=== PATIENT | male | born 1955 | race Caucasian/White ===

== ENCOUNTER 2017-03-16 13:35 | Emergency (ER) | payer MEDICAID ==
--- NOTE | 2017-03-16 14:19 | XRAY Preliminary Report ---
Exam: XR CHEST 2 VIEW PA/LAT IMPRESSION: No acute cardiopulmonary abnormality. No evidence of pneumonia. [facility] SITE ID: [id number]
--- NOTE | 2017-03-16 14:21 | XRAY Report ---
EXAM: CHEST RADIOGRAPHY EXAM DATE: 03/16/2017 02:10 PM. CLINICAL HISTORY: Cough. COMPARISON: None. TECHNIQUE: 2 views. FINDINGS: Lungs/Pleura: No focal opacities evident. No pleural effusion. No pneumothorax. Normal volumes. Mediastinum: Heart and mediastinal contours are unremarkable. Other: Degenerative changes within the spine. Mild anterior compression deformities of several thorac ic vertebral bodies. Dysplastic right fourth rib, likely congenital. IMPRESSION: No acute cardiopulmonary abnormality. No evidence of pneumonia. [facility] Referring Provider Line: [phone] SITE ID: [id number]
[2017-03-16 14:50] VITALS: BP 132/58
[2017-03-16] MEDS ORDERED: IPRATROPIUM/ALBUTEROL 3 ML NEB INH STA (14:50)
[2017-03-16] MEDS ORDERED: DEXAMETHASONE 10 MG/ML VIAL PO STA (14:50)
--- NOTE | 2017-03-16 14:55 | ED Physician Documentation ---
PD HPI URI - Stated complaint Stated Complaint: CHEST CONGESTION - Chief complaint Chief Complaint: Resp - History obtained from History obtained from: Patient - History of Present Illness Timing - onset: How many weeks ago (2) Timing duration: Weeks (2) Timing details: Gradual onset Pain level max: 0 Pain level now: 0 Associated symptoms: Nasal congestion, Rhinorrhea, Productive cough (yellow/ green). No: Fever, Chills, Sweats, Ear pain, Sore throat, Hemoptysis, Chest pain, Dyspnea, NVD Contributing factors: Sick contact. No: Travel, Immunocompromised, Unimmunized , COPD / asthma Improves by: Rest Worsened by: Activity, Breathing Similar symptoms before: Has not had sx before Recently seen: Not recently seen Review of Systems Constitutional: denies: Fever, Chills GI: denies: Abdominal Pain, Vomiting Skin: denies: Rash Musculoskeletal: denies: Neck pain, Back pain PD PAST MEDICAL HISTORY - Past Medical History Past Medical History: No Cardiovascular: None Respiratory: None Endocrine/Autoimmune: None GI: None : None HEENT: None Psych: None Musculoskeletal: None Derm: None - Past Surgical History Past Surgical History: No - Present Medications Home Medications: Ambulatory Orders Medication Instructions Recorded Confirmed Albuterol Sulf [Ventolin Hfa 2 puffs INH Q4HR PRN #1 inhaler 03/16/17 Inhaler] Benzonatate [Tessalon Perle] 100 - 200 mg PO TID PRN #30 capsule 03/16/17 Cetirizine HCl/Pseudoephedrine 1 each PO BID PRN #30 tab.er.12h 03/16/17 [Zyrtec-D Tablet] Prednisone 40 mg PO DAILY #10 tablet 03/16/17 - Allergies Allergies/Adverse Reactions: Allergies Allergy/AdvReac Type Severity Reaction Status Date / Time No Known Drug Allergies Allergy Verified 03/16/17 13:53 - Social History Does the pt smoke?: No Smoking Status: Never smoker Does the pt drink ETOH?: Yes ETOH Use: Wine, Beer Substance Use and Type: Marijuana PD ED PE NORMAL - Vitals Vital signs reviewed: Yes - General General: Alert and oriented X 3, No acute distress - HEENT HEENT: PERRL, Ears normal, Moist mucous membranes, Pharynx benign - Neck Neck: Supple, no meningeal sign, No adenopathy - Cardiac Cardiac: RRR, Strong equal pulses - Respiratory Respiratory: No respiratory distress, Other (mild wheezing B) - Abdomen Abdomen: Soft, Non tender, Non distended - Derm Derm: Warm and dry, No rash - Neuro Neuro: Alert and oriented X 3 - Psych Psych: Normal mood, Normal affect Results - Vitals Vitals: Vital Signs - 24 hr 03/16/17 03/16/17 03/16/17 13:47 14:49 14:59 Temperature 36.8 C 36.4 C L Heart Rate 55 L 55 L 53 L Respiratory 16 18 14 Rate Blood Pressure 155/57 H 132/58 H O2 Saturation 99 98 Oxygen O2 Source Room air - Rads (name of study) cxr Radiology: Prelim report reviewed, EMP read contemporaneously, See rad report ( NAD) PD MEDICAL DECISION MAKING - ED course Complexity details: reviewed results, re-evaluated patient, considered differential, d/w patient ED course: Patient is a 62-year-old male who presents to the emergency department with what appears to be a viral upper respiratory illness with wheezing. No pneumonia on chest x-ray. He is well-appearing, nontoxic. Afebrile. No hypoxia. Feels better after nebulizer treatment. Will place on an inhaler, steroids and decongestants for home. We will have him follow-up with his doctor. Patient counseled regarding signs and symptoms for which I believe and urgent re-evaluation would be necessary. Patient with good understanding of and agreement to plan and is comfortable going home at this time This document was made in part using voice recognition software. While efforts are made to proofread this document, sound alike and grammatical errors may occur. Departure - Departure Disposition: 01 Home, Self Care Clinical Impression: Upper respiratory tract infection Qualifiers: URI type: unspecified viral URI Qualified Code(s): J06.9 - Acute upper respiratory infection, unspecified Condition: Good Instructions: ED URI Viral W Wheezing Follow-Up: your,doctor in 2 weeks if not better [Other] Prescriptions: Albuterol Sulf [Ventolin Hfa Inhaler] 2 puffs INH Q4HR PRN #1 inhaler PRN Reason: Wheezing Benzonatate [Tessalon Perle] 100 - 200 mg PO TID PRN #30 capsule PRN Reason: Cough Cetirizine HCl/Pseudoephedrine [Zyrtec-D Tablet] 1 each PO BID PRN #30 tab.er.12h PRN Reason: Nasal Congestion Prednisone 40 mg PO DAILY #10 tablet Comments: Return if you worsen. This should improve over the next week or 2. This is lasting an average of 3 weeks for people. Your x-rays normal today. Discharge Date/Time: 03/16/17 15:30
[2017-03-16] MEDS ORDERED: DEXAMETHASONE 10 MG/ML VIAL ONE (14:58)
[2017-03-16] MEDS ORDERED: IPRATROPIUM/ALBUTEROL 3 ML NEB INH ONE (15:01)
== END 2017-03-16 15:30 | disposition home or self-care (01) ==
LOC: ED 13:35
DX: J06.9 Acute upper respiratory infection, unspecified (principal)
CPT/HCPCS: 71020; 94640; 99283; J7620

== ENCOUNTER 2018-09-08 10:22 | Outpatient (CLI) | payer MEDICAID ==
[2018-09-08 18:51] LABS: ALBUMIN 4.3 g/dL (3.2-5.5); ALBUMIN/GLOBULIN RATIO 1.7 (1.0-2.2); ALKALINE PHOSPHATASE 43 IU/L (42-121); ALT ALANINE AMINOTRANSFERASE 38 IU/L (10-60); AST ASPARTATE AMINOTRANSFERASE 42 IU/L (10-42); BILIRUBIN,TOTAL 0.9 mg/dL (0.2-1.0); BUN - BLOOD UREA NITROGEN 18 mg/dL (6-20); CALCIUM 9.5 mg/dL (8.5-10.3); CARBON DIOXIDE - CO2 24 mmol/L (21-32); CHLORIDE 103 mmol/L (101-111); CHOL/HDL RATIO 1.5 (<5.0); CHOLESTEROL 188 mg/dL; CREATININE 0.9 mg/dL (0.6-1.2); GFR - MDRD 85 (>89); GLUCOSE 91 mg/dL (70-100); HDL CHOLESTEROL 122 mg/dL; SODIUM 140 mmol/L (135-145); TOTAL PROTEIN 6.8 g/dL (6.7-8.2)
[2018-09-08 18:57] LABS: HB2 TOTAL 15.5 g/dL; HEMOGLOBIN A1C 0.44 g/dL; HEMOGLOBIN A1C % 4.7 % (4.6-6.2)
[2018-09-08 19:13] LABS: LDL CHOLESTEROL,DIRECT 50 mg/dL; LDLD/HDL RATIO 0.4 (<3.6)
[2018-09-08 20:28] LABS: BASOPHILS % (AUTO) 0.7 %; EOSINOPHILS # (AUTO) 0.1 10^3/uL (0.0-0.7); EOSINOPHILS % (AUTO) 1.3 %; HGB - HEMOGLOBIN 14.4 g/dL (14.0-18.0); LYMPHOCYTES # (AUTO) 1.4 10^3/uL (1.5-3.5); LYMPHOCYTES % (AUTO) 22.2 %; MEAN CORPUSCULAR HEMOGLOBIN 32.3 pg (27.0-31.0); MEAN CORPUSCULAR HGB CONC 32.4 g/dL (32.0-36.0); MEAN CORPUSCULAR VOLUME 99.9 fL (80.0-94.0); MEAN PLATELET VOLUME 11.3 fL (7.4-11.4); MONOCYTES # (AUTO) 0.4 10^3/uL (0.0-1.0); MONOCYTES % (AUTO) 6.7 %; NEUTROPHILS # (AUTO) 4.2 10^3/uL (1.5-6.6); NEUTROPHILS % (AUTO) 69.1 %; PLT - PLATELET COUNT 161 10^3/uL (130-450); RED BLOOD COUNT 4.46 10^6/uL (4.70-6.10); RED CELL DISTRIBUTION WIDTH 13.4 % (12.0-15.0); WHITE BLOOD COUNT 6.1 x10^3/uL (4.8-10.8)
== END 2018-09-08 10:23 | disposition home or self-care (01) ==
LOC: LAB.F 10:22
PROVIDERS: ATTEND Internal Medicine
DX: Z00.00 Encounter for general adult medical examination without abnormal findings (principal)
CPT/HCPCS: 36415; 80053; 80061; 83036; 83721; 84443; 85025